=== PATIENT | male | born 1970 | race Caucasian/White ===

== ENCOUNTER 2017-11-06 19:25 | Inpatient (IN) | payer OTHER ==
[2017-11-06] MEDS ORDERED: NS 1,000 ML IV ONE (19:47)
--- NOTE | 2017-11-06 20:17 | EDPHY ---
H & P Smoking Status: Never smoked Time Seen by Provider: 11/06/17 19:37 HPI/ROS: CHIEF COMPLAINT: Concern for cholecystitis HISTORY OF PRESENT ILLNESS: Patient is a 47-year-old male with a history of colorectal cancer here with concern for possible cholecystitis. He is under the care of Dr. aMnning who is his oncologist at [facility]. He underwent a PET scan recently that showed metastases to the liver and additionally showed portal vein thrombosis but additionally showed multiple gallstones. The patient went to [facility] yesterday and had an ultrasound done which showed multiple gallstones with thickening of the gallbladder wall. Ultrasound report is not available at this time. He states that 1 week ago he had a fever and was prescribed amoxicillin by his oncologist in the fever has resolved. His some garcia was that the fever is due to infection of a chronic fluid collection he has secondary to his colectomy. He does report mild right upper quadrant pain over the last week. Denies any vomiting, diarrhea, chest pain, shortness of breath. His last chemo treatment was in June. REVIEW OF SYSTEMS: Constitutional: No fever, no chills. Eyes: No discharge. ENT: No sore throat. Cardiovascular: No chest pain, no palpitations. Respiratory: No cough, no shortness of breath. Gastrointestinal: + abdominal pain, no vomiting. Genitourinary: No hematuria. Musculoskeletal: No back pain. Skin: No rashes. Neurological: No headache. (Connor Bailey) Physical Exam: General Appearance: Alert and no distress. Eyes: Pupils equal and round no injection. Respiratory: Chest is nontender, lungs are clear to auscultation. Cardiac: regular rate and rhythm. Gastrointestinal: Minimally tender right upper quadrant without guarding or rebound or rigidity. History wrist patient does have a colostomy bag present and there is no induration or tenderness surrounding the borders. Musculoskeletal: Neck is supple and nontender. Extremities have full range of motion and are nontender. Skin: No rashes or lesions. (Connor Bailey) Constitutional: Initial Vital Signs Temperature (C) 36.8 C 11/06/17 19:30 Heart Rate 102 H 11/06/17 19:30 Respiratory Rate 18 11/06/17 19:30 Blood Pressure 148/86 H 11/06/17 19:30 O2 Sat (%) 94 11/06/17 19:30 O2 Delivery Mode Room Air Allergies/Adverse Reactions: hydrocodone Allergy (Verified 11/07/17 09:16) Itching Home Medications: Medication Instructions Recorded Insulin Glargine [Lantus 100 20 units SC HS 11/07/17 UNITS/ML (*)] Insulin Lispro [Humalog Kwikpen 10 unit SQ TID 11/07/17 U-100] LORazepam [Ativan (*)] 0.5 mg PO HS PRN 11/07/17 Medical Decision Making ED Course/Re-evaluation: 39-year-old male here with concern for cholecystitis. Ultrasound reveals thickened gallbladder wall without other evidence of cholecystitis. At lab work shows no leukocytosis and he is afebrile. Exam reveals minimally tender right upper quadrant. I discussed case with on-call general surgery Dr. Yu who recommended MRCP for further evaluation. MRCP revealed once again possible cholecystitis but with intrahepatic biliary ductal dilatation without clear evidence of mass or stone. Common bile duct was normal making cholangitis less likely. Patient will be admitted for further evaluation and and consultation with gastroenterology for possible ERCP tomorrow morning. Patient is agreeable with this plan and comfortable at time of admission. He remained hemodynamically stable and was afebrile during his stay in the ER (Connor Bailey) I did not see this patient while he was in the emergency department. However his care was discussed with the PA while the patient was in the department. I agree with treatment plan and management (Mike Capellan) Differential Diagnosis: Cholangitis, pancreatitis, choledocholithiasis, cholecystitis (Connor Bailey ) - Data Points Laboratory Results: Laboratory Results 11/06/17 20:20 11/06/17 20:20 Medications Given: Discontinued Medications Sodium Chloride (Ns) 1,000 mls @ 0 mls/hr IV EDNOW ONE; Wide Open PRN Reason: Protocol Stop: 11/06/17 19:48 Last Admin: 11/06/17 20:21 Dose: 1,000 mls Lactated Ringer's (Lr) 1,000 mls @ 0 mls/hr IV ONCE ONE PRN Reason: As Directed Stop: 11/07/17 15:07 Last Admin: 11/07/17 15:13 Dose: 1,000 mls Levofloxacin/Dextrose (Levaquin 500 Mg (Premix)) 100 mls @ 100 mls/hr IV ONCE ONE Stop: 11/07/17 16:44 Last Admin: 11/07/17 18:22 Dose: Not Given Sodium Chloride (Ns) 1,000 mls @ 75 mls/hr IV CONT MEHNAZ Stop: 11/08/17 08:04 Last Admin: 11/07/17 19:56 Dose: 1,000 mls Indomethacin (Indocin Rectal) 100 mg IL ONCE ONE Stop: 11/07/17 15:46 Last Admin: 11/07/17 18:22 Dose: Not Given Insulin Glargine (Lantus Syringe) 20 units SC HS MEHNAZ Stop: 05/06/18 20:59 Last Admin: 11/07/17 21:06 Dose: Not Given Insulin Human Lispro (Humalog Lispro) 0 unit SC TIDMEAL MEHNAZ PRN Reason: Protocol Stop: 05/06/18 07:59 Last Admin: 11/08/17 12:36 Dose: 4 units Insulin Human Lispro (Humalog Lispro) 10 unit SC ONCE ONE Stop: 11/07/17 01:35 Last Admin: 11/07/17 01:45 Dose: 10 units Departure - Departure Disposition: [facility] Acute Condition: Fair
[2017-11-06 20:38] LABS: PLATELET COUNT 153 10^3/uL (150-400)
[2017-11-06 20:46] LABS: INR 1.06 (0.83-1.16)
[2017-11-06] MEDS ORDERED: GADOBUTROL 10 ML VIAL IVP ONE (21:48)
[2017-11-07] MEDS ORDERED: ACETAMINOPHEN 325 MG TAB PO PRN (00:13)
[2017-11-07] MEDS ORDERED: ONDANSETRON 4 MG/2 ML VIAL IVP PRN ×2 (00:13→16:03)
[2017-11-07] MEDS ORDERED: ONDANSETRON DISINTEGRATING 4 MG TAB PO PRN (00:13)
[2017-11-07] MEDS ORDERED: D50W 25 GM/50 ML VIAL IVP PRN (01:05)
--- NOTE | 2017-11-07 01:17 | PDGENHP ---
History and Physical - Chief Complaint RUQ Pain - History of Present Illness 47 yo M w/ hx of rectal CA presents with RUQ pain. Patient first noticed a fever last Friday. He went to see his doctor who prescribed Augmentin. 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 His fevers improved after starting Augmentin. Over the last few days, however, he has developed progressive RUQ/RLQ abdominal pain. Outpatient labs showed elevated bilirubin so he was sent for evaluation at [facility]. Abdominal U/S there revealed possible cholecystitis and dilated bile ducts so he was sent to [facility] for evaluation. While here he has been afebrile, hemodynamically stable, and well appearing. His RUQ pain is improved after pain medicine. Dr. Yu of general surgery was consulted who requested MRCP. This revealed intrahepatic biliary ductal dilation without a clear source of obstruction. He is being admitted for further work-up and likely ERCP. History Information - Allergies/Home Medication List Allergies/Adverse Reactions: No Known Allergies Allergy (Unverified 11/06/17 19:28) Home Medications: AMOXICILLIN 11/06/17 [Last Taken Unknown] LORAZEPAM 11/06/17 [Last Taken Unknown] Lantus 11/06/17 [Last Taken Unknown] I have personally reviewed and updated: family history, medical history - Past Medical History cancer (Rectal CA w/ liver mets) - Surgical History Additional surgical history: Rectal resection with pouch formation and ostomy - Family History Positive for: cancer - Social History Smoking Status: Never smoked Review of Systems Review of Systems: ROS: 10pt was reviewed & negative except for what was stated in HPI & below Physical Exam Physical Exam: Temp Pulse Resp BP Pulse Ox 36.6 C 95 16 141/73 H 96 11/07/17 00:40 11/07/17 00:40 11/07/17 00:40 11/07/17 00:40 11/07/17 00:40 Constitutional: no apparent distress, appears nourished Eyes: PERRL, EOMI Ears, Nose, Mouth, Throat: moist mucous membranes, no oral mucosal ulcers Cardiovascular: regular rate and rhythym, no murmur, rub, or gallop Respiratory: no respiratory distress, clear to auscultation Gastrointestinal: normoactive bowel sounds, tenderness (RUQ/RLQ), verma's sign (Equivocal), other (Ostomy LLQ noted, nordmal appearing), No guarding, No rebound Skin: warm, normal color Musculoskeletal: full muscle strength, no muscle tenderness Neurologic: AAOx3, CN II-XII Intact Psychiatric: interacting appropriately, not anxious Lab Data & Imaging Review 11/06/17 20:20 11/06/17 20:20 WBC 3.85 10^3/uL (3.80-9.50) 11/06/17 20:20 RBC 3.28 10^6/uL (4.40-6.38) L 11/06/17 20:20 Hgb 9.2 g/dL (13.7-17.5) L 11/06/17 20:20 Hct 28.4 % (40.0-51.0) L 11/06/17 20:20 MCV 86.6 fL (81.5-99.8) 11/06/17 20:20 MCH 28.0 pg (27.9-34.1) 11/06/17 20:20 MCHC 32.4 g/dL (32.4-36.7) 11/06/17 20:20 RDW 18.9 % (11.5-15.2) H 11/06/17 20:20 Plt Count 153 10^3/uL (150-400) 11/06/17 20:20 MPV 9.2 fL (8.7-11.7) 11/06/17 20:20 Neut % (Auto) 91.4 % (39.3-74.2) H 11/06/17 20:20 Lymph % (Auto) 6.2 % (15.0-45.0) L 11/06/17 20:20 [place] % (Auto) 1.6 % (4.5-13.0) L 11/06/17 20:20 Eos % (Auto) 0.0 % (0.6-7.6) L 11/06/17 20:20 Baso % (Auto) 0.3 % (0.3-1.7) 11/06/17 20:20 Nucleat RBC Rel Count 0.0 % (0.0-0.2) 11/06/17 20:20 Absolute Neuts (auto) 3.52 10^3/uL (1.70-6.50) 11/06/17 20:20 Absolute Lymphs (auto) 0.24 10^3/uL (1.00-3.00) L 11/06/17 20:20 Absolute Monos (auto) 0.06 10^3/uL (0.30-0.80) L 11/06/17 20:20 Absolute Eos (auto) 0.00 10^3/uL (0.03-0.40) L 11/06/17 20:20 Absolute Basos (auto) 0.01 10^3/uL (0.02-0.10) L 11/06/17 20:20 Absolute Nucleated RBC 0.00 10^3/uL (0-0.01) 11/06/17 20:20 Immature Gran % 0.5 % (0.0-1.1) 11/06/17 20:20 Immature Gran # 0.02 10^3/uL (0.00-0.10) 11/06/17 20:20 RBC/WBC/PLT Morphology TNP 11/06/17 20:20 Platelet Estimate TNP 11/06/17 20:20 PT 14.0 SEC (12.0-15.0) 11/06/17 20:20 INR 1.06 (0.83-1.16) 11/06/17 20:20 APTT 28.4 SEC (23.0-38.0) 11/06/17 20:20 Sodium 139 mEq/L (135-145) 11/06/17 20:20 Potassium 4.3 mEq/L (3.3-5.0) 11/06/17 20:20 Chloride 104 mEq/L (97-110) 11/06/17 20:20 Carbon Dioxide 18 mEq/l (22-31) L 11/06/17 20:20 Anion Gap 17 mEq/L (8-16) H 11/06/17 20:20 BUN 16 mg/dL (7-23) 11/06/17 20:20 Creatinine 0.8 mg/dL (0.7-1.3) 11/06/17 20:20 Estimated GFR > 60 11/06/17 20:20 Glucose 372 mg/dL (70-100) H 11/06/17 20:20 Calcium 9.1 mg/dL (8.5-10.4) 11/06/17 20:20 Total Bilirubin 7.1 mg/dL (0.1-1.4) H 11/06/17 20:20 Conjugated Bilirubin 5.9 mg/dL (0.0-0.5) H 11/06/17 20:20 Unconjugated Bilirubin 1.2 mg/dL (0.0-1.1) H 11/06/17 20:20 AST 164 IU/L (17-59) H 11/06/17 20:20 ALT 195 IU/L (21-72) H 11/06/17 20:20 Alkaline Phosphatase 981 IU/L (38-126) H 11/06/17 20:20 Total Protein 8.0 g/dL (6.3-8.2) 11/06/17 20:20 Albumin 3.8 g/dL (3.5-5.0) 11/06/17 20:20 Lipase 186 IU/L (23-300) 11/06/17 20:20 Imaging Review: Imaging Impressions Abdomen Ultrasound 11/06/17 19:52 Impression: 1. Poorly distended gallbladder, with apparent cholelithiasis and gallbladder wall thickening, suspicious for cholecystitis. 2. Heterogeneous liver, with no dominant hepatic mass. 3. Mild intrahepatic biliary dilatation. 4. Additional findings, as above. Findings discussed with Connor Bailey PA-C, on November 06, 2017 at 2055. Abdomen MRI 11/06/17 21:31 Impression: 1. Central hepatic biliary obstruction with no appreciable etiology, which could be related to chemotherapy induced cholangitis, occult metastasis from colon cancer, or less likely cholangiocarcinoma. 2. Decompressed gallbladder with apparent gallbladder wall thickening without definite pericholecystic fluid, indeterminant for cholecystitis. 3. 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 4. Additional findings as above. If previous outside imaging can be made available, I will be happy to compare it. Findings discussed with Connor Bailey 11/06/2017 at 23:29. Assessment & Plan Assessment: 47 yo M w/ hx of rectal CA p/w RUQ pain and elevated bilirubin found to have biliary obstruction of unclear etiology. Plan: 1. Biliary obstruction - Central hepatic biliary obstruction with no appreciable etiology seen on MRI. Per radiology, this could be related to chemotherapy induced cholangitis, occult metastasis from colon cancer, or less likely cholangiocarcinoma. Review of previous records shows total bilirubin of 5 on 11/04, increased to 7.1 today (direct predominant): alk phos 981. Ascending cholangitis is a consideration but patient is currently well appearing, afebrile , and hemodynamically stable so this appears less likely. - Admit for further work-up - Will consult GI in the morning for likely ERCP, maintain NPO - Will observe off of antibiotics for now, blood cultures obtained - General surgery consulted, appreciate assistance - Discussed case with ED physician, reviewed previous records available in [facility] - Monitor CMP 2. Hx of rectal CA - Diagnosed in 2014 and treated surgically as well as with chemo and XRT. He had hepatic recurrence in 2017; his last PET scan available for review shows regression of hepatic lesions after further chemotherapy. He is currently off of treatment, but states further suppressive chemotherapy is planned in the future. - Ostomy in place 3. IDDM - Manages BG at home with insulin glargine 20 u qHS + insulin lispro 10 u TID. - Will proceed with insulin glargine 20 u qHS + standard protocol lispro SSI - ACHS BG checks + D50 IV PRN for hypoglycemia ordered 4. Hx of portal vein thrombosis - Previously on Xarelto, stopped due to bleeding complications related to chronic pelvic abscess. 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 6. Gallbladder wall thickening - Decompressed gallbladder with apparent gallbladder wall thickening without definite pericholecystic fluid, indeterminant for cholecystitis seen on MRI. - General surgery following, appreciate assistance 7. Normocytic anemia - Suspect anemia of chronic inflammation with possible contribution from oral 5-FU (last dose in August). Value (9.2) on admission improved from last found in [facility]. - Monitor CBC Diet - NPO Code - Full Ppx - SCDs Dispo - Admit under observation status
[2017-11-07] MEDS ORDERED: INSULIN LISPRO 100 UNIT/ML SC ONE (01:34)
[2017-11-07 04:48] LABS: PLATELET COUNT 154 10^3/uL (150-400)
[2017-11-07] MEDS: INSULIN LISPRO 100 UNIT/ML SC SCH ×3 (08:09→18:35)
--- NOTE | 2017-11-07 10:25 | GCON ---
[f rep st] CONSULTATION MEDICAL ONCOLOGY FOLLOWUP DATE OF CONSULTATION: 11/07/2017 REFERRING PHYSICIAN: Brock Marley MD REASON FOR CONSULTATION: Ongoing management of metastatic rectal carcinoma and biliary obstruction. RECOMMENDATIONS: 1. Agree with ERCP with Dr. Lindsay as you are planning this afternoon. 2. Monitor liver functions. 3. If this obstruction appears to be related to worsening metastatic rectal cancer as is suspected, the patient will need to go back on therapy, possibly with a different regimen. He previously was on FOLFOX and completed 12 cycles of therapy on the June. He had been in complete charo ssion at that time. He was started on maintenance capecitabine, which was stopped on the September secondary to a rising CEA and side effects. ASSESSMENT: This 47-year-old white male is now admitted with abnormal liver functions and a rising b ilirubin. His CEA was also found to be going up and most recently was 17. Because of the rising ning er functions and bilirubin, he underwent evaluation and was found to have dilated biliary tree. The question came up as to whether this is related to his gallbladder or possibly a stone that had passed or related to his cancer. That is yet to be fully determined, but the suspicion based on his rising CEA is that this is related to recurrent metastatic disease. The patient will get an ERCP with Dr. Lindsay this afternoon. Dr. Lindsay at that time will determine whet her it is appropriate to do biopsies, place a stent, etc. After discharge from the hospital, the patient will follow up with Dr. Mike Manning for discussion of reinstitution or change in his chemotherapy. HISTORY OF PRESENT ILLNESS: Please see Assessment. PAST MEDICAL HISTORY: Remarkable for his rectal cancer, which was diagnosed on the 21 of December 201 5. Stage at diagnosis was IIA. His tumor was T3 N0 M0. This is an adenocarcinoma. He is BRAF wild type. He is microsatellite stable. He is mismatch repair proficient. The patient was initially tr eated with combined modality therapy with capecitabine and radiation in December of 2014, completing in February of 2015. He had a rectosigmoid colectomy in March of 2015, which required reoperation be cause of an anastomotic leak in March of 2015. He had a diverting colostomy in April of 2015 f or a colonic leak and pelvic and retroperitoneal abscess. The patient was placed on treatment for hi s metastatic disease to his liver in January of 2017. He completed 12 cycles of FOLFOX. His past medical history is otherwise unremarkable. PAST SURGICAL HISTORY: In addition to the above-mentioned surgery, the patient has had a right knee arthroscopy and also had surgery for a jaw fracture in 1988. SOCIAL HISTORY: The patient is . 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 He does not smoke or drink. FAMILY HISTORY: Remarkable for a maternal grandfather who had bladder cancer at age 82. REVIEW OF SYSTEMS: At this time is remarkable for jaundice that was noticed by his . He has had no cough, no fevers. Some minor right lower quadrant abdominal pain. He has had no swelling or leo n in arm or leg. He reports no hemoptysis. His 10-system review is otherwise unremarkable. PHYSICAL EXAMINATION: GENERAL: Alert white male, talking on the phone when I came in the room. NAHID NT: Exam is remarkable for scleral icterus bilaterally. NECK: Supple, without adenopathy. LUNGS: Clear to auscultation. CARDIAC: Exam reveals regular rate and rhythm. ABDOMEN: Exam shows normal bowel sounds. His abdomen is soft. He has minor right lower quadrant tenderness but without reboun d tenderness. He has a functioning colostomy in the left lower quadrant. EXTREMITIES: Lower extrem ities show no edema. LABORATORY DATA: The patient's CBC shows a white count of 5.42 with a hemoglobin of 9.0 and a platel et count of 154,000. His INR is normal at 1.06. His glucose was elevated at 293. His total bilirub in was 7.1 on admission and down to 5.9 today. His alkaline phosphatase is elevated at 895, and his AST is elevated at 130 with an a ALT of 173. Albumin is normal at 3.5. Thank you very much for allowing us to participate in this pleasant gentleman's ongoing oncologic car e. We will look forward to assisting with his management during this hospitalization and beyond. /[id number]/MODL
--- NOTE | 2017-11-07 11:04 | ASMTCMCOM ---
CM Note CM Note Notes: CM reviewed chart for D/C planning. Pt is a 47 y/o male with a h/o rectal cancer. He has had a rectal resection with pouch formation and ostomy. He currently has a biliary obstruction of unclear etiology. Prior to hospitalization he lived independently with his , Mady # [phone]. CM will follow. D/C Plan TBD Date Signed: 11/07/2017 11:04 AM Electronically Signed By:Nathalia Camacho
[2017-11-07] MEDS ORDERED: IOTHALAMATE MEG (CONRAY) 50 ML VIAL IV ONE (14:51)
[2017-11-07] MEDS ORDERED: GLUCAGON HCL 1 MG VIAL ONE (14:51)
[2017-11-07] MEDS ORDERED: LR 1,000 ML IV ONE (15:06)
--- NOTE | 2017-11-07 15:20 | PDANEPAE ---
ANE History of Present Illness 47 year old male w/ history of metastatic rectal cancer (mets to liver) now signs of biliary obstruction for ERCP. ANE Past Medical History - Cardiovascular History Hx Hypertension: No Hx Arrhythmias: No Hx Chest Pain: No Hx Coronary Artery / Peripheral Vascular Disease: No Hx CHF / Valvular Disease: No Hx Palpitations: No - Pulmonary History Hx COPD: No Hx Asthma/Reactive Airway Disease: No Hx Recent Upper Respiratory Infection: No Hx Oxygen in Use at Home: No Hx Sleep Apnea: No Sleep Apnea Screening Result - Last Documented: Negative - Endocrine History Hx Diabetes: Yes Hypothyroid: No Hyperthyroid: No Obesity: no - Renal History Hx Renal Disorders: No - Liver History Hx Hepatic Disorders: Yes Hepatic History Comment: Mets to liver - Neurological & Psychiatric Hx Hx Neurological and Psychiatric Disorders: No - Cancer History Hx Cancer: Yes Cancer History Comment: Metastatic rectal cancer (mets to liver) - Congenital Disorder History Hx Congenital Disorders: No - GI History Gastrointestinal History Comment: rectal cancer with colostomy - Chronic Pain History Chronic Pain: No ANE Review of Systems Review of systems is: negative Review of Systems: - Exercise capacity Exercise capacity: >=4 METS ANE Patient History - Allergies Allergies/Adverse Reactions: hydrocodone Allergy (Verified 11/07/17 09:16) Itching - Home Medications Home medications: home medication list seen and reviewed Home Medications: Amoxicillin/Clavulanate Pot [Augmentin 875 MG TAB (*)] 875 mg PO BID 11/07/17 [ Last Taken 11/06/17 am dose only] Insulin Glargine [Lantus 100 UNITS/ML (*)] 20 units SC HS 11/07/17 [Last Taken 11/05/17] Insulin Lispro [Humalog] 10 unit SQ TID 11/07/17 [Last Taken 11/06/17 16:00] LORazepam [Ativan (*)] 0.5 mg PO HS PRN 11/07/17 [Last Taken 11/05/17] - NPO status NPO Status: no food or drink >8 hours NPO Since - Liquids (Date): 11/07/17 NPO Since - Liquids (Time): 00:00 NPO Since - Solids (Date): 11/07/17 NPO Since - Solids (Time): 00:00 - Anes Hx Anes Hx: no prior problems - Smoking Hx Smoking Status: Never smoked Marijuana use: No - Alcohol Use Alcohol Use: Rarely - Family Anes Hx Family Anes Hx: neg - N/A ANE Labs/Vital Signs - Labs Result Diagrams: 11/07/17 04:32 11/07/17 04:32 - Vital Signs Vital Signs: reviewed preoperatively; see RN documention for details Blood Pressure: 124/80 Heart Rate: 90 Respiratory Rate: 16 O2 Sat (%): 97 Height: 175.26 cm Weight: 83.007 kg ANE Physical Exam - Airway Neck exam: FROM Mallampati Score: Class 2 Mouth exam: normal dental/mouth exam - Pulmonary Pulmonary: no respiratory distress - Cardiovascular Cardiovascular: regular rate and rhythym - ASA Status ASA Status: III ANE Anesthesia Plan Anesthesia Plan: general endotracheal anesthesia Total IV Anesthesia: No
[2017-11-07] MEDS ORDERED: PROPOFOL 200 MG/20 ML VIAL ONE (15:35)
[2017-11-07] MEDS ORDERED: ROCURONIUM 50 MG/5 ML VIAL ONE (15:35)
[2017-11-07] MEDS ORDERED: fentaNYL 100 MCG/2 ML INJ ONE (15:35)
[2017-11-07] MEDS ORDERED: LIDOCAINE 2% 5 ML SDV ONE (15:35)
[2017-11-07] MEDS ORDERED: levOFLOXACIN 500 MG/DEXTROSE 100 ML IV ONE (15:45)
[2017-11-07] MEDS ORDERED: INDOMETHACIN 50 MG SUPP PR ONE (15:45)
[2017-11-07] MEDS ORDERED: HYDROmorphONE/DILAUDID 1 MG/ML INJ IVP PRN (16:03)
[2017-11-07] MEDS ORDERED: PHENYLEPHRINE HCL 100 MCG/ML SYR IVP PRN (16:03)
[2017-11-07] MEDS ORDERED: LR 500 ML IV PRN (16:03)
[2017-11-07] MEDS ORDERED: fentaNYL 100 MCG/2 ML INJ IVP PRN (16:03)
[2017-11-07] MEDS ORDERED: PROMETHAZINE HCL 25 MG/ML INJ IVP PRN (16:03)
[2017-11-07] MEDS ORDERED: NALOXONE HCL 0.4 MG/ML INJ IVP PRN (16:03)
[2017-11-07] MEDS ORDERED: levOFLOXACIN 500 MG/DEXTROSE/100 ML BAG IV ONE (16:14)
[2017-11-07] MEDS ORDERED: ONDANSETRON 4 MG/2 ML VIAL ONE (16:28)
[2017-11-07] MEDS ORDERED: SUGAMMADEX SODIUM 200 MG/2 ML VIAL IVP ONE (16:28)
[2017-11-07] MEDS ORDERED: LORazepam 0.5 MG TAB PO PRN (16:56)
--- NOTE | 2017-11-07 17:08 | HOSPPROG ---
Hospitalist Progress Note Assessment/Plan: * Metastatic rectal cancer - known liver mets -if biliary obstruction due to liver met, will need chemo change * Biliary obstruction - unclear cause of obstruction -ERCP today * Chronic pelvic abscess as complication of anastomotic leak -rectal resection s/p colostomy * DM II -lantus * Portal vein thrombosis -Xarelto dc'd due to bleeding Subjective: seen post ERCP in PACU - sedated Objective: Vital Signs Temp Pulse Resp BP Pulse Ox 36.6 C 90 16 124/80 H 97 11/07/17 14:43 11/07/17 15:31 11/07/17 15:31 11/07/17 15:31 11/07/17 15:31 Laboratory Results 11/07/17 04:32 11/07/17 04:32 11/06/17 11/07/17 11/08/17 05:59 05:59 05:59 Intake Total 1100 Balance 1100 PT 14.0 SEC (12.0-15.0) 11/06/17 20:20 INR 1.06 (0.83-1.16) 11/06/17 20:20 MRCP - obstruction mid liver, unclear cause d/w Dr. Bennett regarding oncology consultation - Physical Exam Constitutional: no apparent distress, appears nourished, not in pain Cardiovascular: regular rate and rhythym, no murmur, rub, or gallop Respiratory: no respiratory distress, no rales or rhonchi, clear to auscultation Gastrointestinal: normoactive bowel sounds, soft, non-tender abdomen, no palpable masses Skin: no rashes or abrasions, no fluctuance, no induration Neurologic: other (sedated post procedure) ICD10 Worksheet Patient Problems: Problems Problem Status Onset Rectal cancer metastasized to liver Acute - ICD10 Problem Qualifiers (1) Rectal cancer metastasized to liver
[2017-11-07] MEDS ORDERED: NS 1,000 ML IV SCH (18:45)
[2017-11-07] MEDS ORDERED: INSULIN GLARGINE 100 UNITS/ML UNIT SC SCH ×2 (21:00)
--- NOTE | 2017-11-08 02:51 | GCON ---
[f rep st] CONSULTATION DATE OF CONSULTATION: 11/07/2017 CONSULTING PHYSICIAN: Dr. Brock Marley. REASON FOR CONSULTATION: Increased liver function tests/biliary obstruction. CHIEF COMPLAINT: Right upper quadrant abdominal pain. HISTORY OF PRESENT ILLNESS: This patient is a 47-year-old male with a history of metastatic rectal cancer initially diagnosed in 2014 who presents to [facility] with complaints of right upper quadrant abdominal pain, as well as increasing liver function tests. Patient was doing well until approximately 1 week prior to admission when he started to develop fevers. He called his oncologist and was started on Augmentin with relief of his fevers. Unfortunately, over the last several days, the patient has been complaining of a right upper quadrant, as well as right lower quadrant abdominal pain. This pain is exacerbated by certain positions with no significant alleviating factors. Due to his complaints, blood work was done which did reveal significant elevated liver function tests. He also thought that his skin may be turning yellow. On evaluation, he was noted to have significant elevated liver function tests with a bilirubin of 5.9 and alkaline phosphatase of 895. An MRCP was ordered which did reveal a hilar obstruction with upstream right and left ductal dilation. I am being asked by Dr. Marley to evaluate the patient in consultation regarding his increasing liver function tests/biliary obstruction. PAST MEDICAL HISTORY: Metastatic colon cancer initially diagnosed in 2004, diabetes mellitus. PAST SURGICAL HISTORY: Right knee surgery, jaw fracture. MEDICATIONS: Lantus, lorazepam, amoxicillin. ALLERGIES: NKDA. FAMILY HISTORY: Bladder cancer. SOCIAL HISTORY: . Denies any alcohol or tobacco use. REVIEW OF SYSTEMS: A 14-point comprehensive review of systems was asked. Pertinent positives and negatives per HPI. PHYSICAL EXAM: VITALS: Blood pressure 124/80, temperature 36.6, respirations 16. GENERAL: Awake, alert, oriented. HEENT: Anicteric sclerae. Moist mucosa. NECK: No JVD. CARDIOVASCULAR: Regular rate and rhythm. Positive S1 , S2. No murmurs or gallops appreciated. LUNGS: Clear to auscultation bilaterally without wheezes, rales, or rhonchi. ABDOMEN: Soft, nontender, nondistended. Positive bowel sounds. No guarding. No rebound. EXTREMITIES: No clubbing, cyanosis, edema. NEUROLOGIC: 2 through 12 grossly intact. PSYCH : Normal affect. MUSCULOSKELETAL: No obvious joint effusions. BLOOD WORK: INR 1.06. Total bilirubin 5.9, AST 130, ALT 173, alkaline phosphatase 895. MRCP: Hilar tumor with upstream dilation of both the right and left biliary tree. ASSESSMENT AND PLAN: 1. Biliary obstruction - suspect secondary to metastatic rectal cancer. I did discuss the case with his primary oncology team. At this time, recommend to proceed with ERCP with possible stenting to alleviate the obstruction. The risks, benefits, and alternatives of the procedure were discussed in great detail with the patient. The risks of infection, bleeding, perforation, sedation, and pancreatitis were discussed. All questions answered. Informed consent was obtained. 2. History of metastatic colon cancer. Thank you very much for this consultation. /[id number]/MODL MTDD
[2017-11-08 04:55] LABS: PLATELET COUNT 148 10^3/uL (150-400)
--- NOTE | 2017-11-08 05:10 | GPN ---
[f rep st] PROCEDURE NOTE DATE OF PROCEDURE: 11/07/2017 PROCEDURE: Endoscopic retrograde cholangiopancreatogram with biliary sphincterotomy, extraction of debris, placement of temporary stent. INDICATIONS: The patient is a 47-year-old male with a history of metastatic colon cancer who presents with biliary obstruction. CONSENT: Risks, benefits, and alternatives of the procedure were discussed in great detail with the patient. The risk of infection, bleeding, perforation, sedation, and pancreatitis were discussed. All questions answered. Informed consent obtained. MEDICATIONS: General anesthesia. Please see Anesthesia record for details. Levaquin 500 mg IV x1. Rectal indomethacin 100 mg OK x1. ESTIMATED BLOOD LOSS: Insignificant. ENDOSCOPIC RETROGRADE CHOLANGIOPANCREATOGRAM EXAMINATION: The Olympus duodenoscope was introduced into the mouth and advanced to the second portion of the duodenum. The ampulla was brought into view and was normal in appearance. Using a SurDoc sphincterotome and a 0.035 inch wire, a wire was advanced into the common bile duct and intrahepatics after a few tries using the wire guided technique. A limited cholangiogram was performed to confirm position. A 1 cm biliary sphincterotomy was performed. An occlusion cholangiogram was performed with filling of the entire biliary tree including the gallbladder. There was adequate flow of bile with visualization of the whole biliary tree. I personally interpreted these images in real-time. The gallbladder was seen with multiple stones. The common bile duct was not dilated and measured approximately 3-4 mm. In the common hepatic area, there was poor opacification consistent with a malignant stricture. Upstream, there was dilation of both the right and left biliary trees. Multiple balloon sweeps were made with a 12mm balloon with extraction of debris. A wire was initially placed into the left biliary tree and then another wire was advanced into the right biliary tree. It was initially attempted to place two 7-Greek 9 cm stents into both sides. Unfortunately, this high-grade stricture, as well as small common bile duct would not allow passage of these stents due to its small diameter. A 10-Greek 9 cm stent was eventually placed above the common hepatic duct and stricture. Excellent flow of bile was noted. IMPRESSION: 1. Stricture in the common hepatic duct . 2. Extraction of debris. 3. Placement of a temporary stent above the obstruction. RECOMMENDATIONS: 1. N.p.o. 2. Antibiotics x5 days. 3. Consider repeat ERCP with placement of 2 stents on both sides of the biliary tree. This will require dilation in the common hepatic duct stricture. /[id number]/MODL MTDD
[2017-11-08 07:57] VITALS: BP 110/67
--- NOTE | 2017-11-08 08:08 | PDMN ---
Medical Necessity Medical necessity: MCG: M555 gallbladder or bile duct inflammation or stone A- 2 days: biliary obstruction, with abnormal liver functions and rising bilirubin. ERCP with stents , pt with known Met. rectal Ca., known liver mets. , further monitoring and tx needed anticipate > 2 midnights
[2017-11-08] MEDS: INSULIN LISPRO 100 UNIT/ML SC SCH ×2 (09:10→12:36)
--- NOTE | 2017-11-08 12:20 | SOAPPROG ---
SOAP Progress Note Assessment/Plan: E&M for rectal carcinoma * Biliary obstruction secondary to malignancy: He underwent an ERCP by Dr. Lindsay yesterday. He also had stents placed. His nausea is better and he has an appetite. If he is able to take p.o. and cleared by GI, there is no oncological contraindication for him to stay. * Metastatic colorectal cancer: It appears his disease may be progressing. Once he is recovered from the stent placement he needs to follow-up with Dr. Manning for discussion of reinstitution or change in his chemotherapy. Subjective: Patient currently in the shower. He ate a clear liquid breakfast without pain or nausea or vomiting. is with the patient. Objective: Vital Signs Temp Pulse Resp BP Pulse Ox 36.9 C 87 14 110/67 97 11/08/17 07:57 11/08/17 07:57 11/08/17 07:57 11/08/17 07:57 11/08/17 07:57 Laboratory Results 11/08/17 04:41 11/08/17 04:41 11/07/17 11/08/17 11/09/17 05:59 05:59 05:59 Intake Total 1100 1764 Output Total 5 Balance 1100 1759 PT 14.0 SEC (12.0-15.0) 11/06/17 20:20 INR 1.06 (0.83-1.16) 11/06/17 20:20 Laboratory Tests 11/06/17 11/07/17 11/08/17 20:20 04:32 04:41 Total Bilirubin 7.1 H 5.9 H 6.7 H Conjugated Bilirubin 5.9 H 4.7 H 5.5 H Unconjugated Bilirubin 1.2 H 1.2 H 1.2 H AST 164 H 130 H 153 H ALT 195 H 173 H 180 H Alkaline Phosphatase 981 H 895 H 773 H Physical Exam - Physical Exam General Appearance: no apparent distress ICD10 Worksheet Patient Problems: Problems Problem Status Onset Rectal cancer metastasized to liver Acute
--- NOTE | 2017-11-08 13:42 | POSTANESTH ---
Post Anesthetic Evaluation Cardiovascular Status: Normal, Stable, Similar to Pre-Op Cond Respiratory Status: Normal, Stable, Similar to Pre-op Cond. Level of Consciousness/Mental Status: Can Participate in Eval, Alert and Oriented Pain Control: Adequate, Prn Tx Ordered Nausea/Vomiting Control: Adequate, Prn Tx Ordered Complications Possibly Related to Anesthesia: None Noted
--- NOTE | 2017-11-08 14:30 | PDDCSUM ---
Discharge Summary Discharge Summary: Date of Admission: November 07, 2017 Date of Discharge: November 08, 2017 Discharge Diagnoses: Biliary obstruction, status post stent placement Metastatic rectal cancer Colostomy Insulin-dependent diabetes mellitus Chronic pelvic abscess Anemia History of portal vein thrombosis Admission Diagnoses: Biliary obstruction Rectal cancer Colostomy Insulin-dependent diabetes mellitus History of portal vein thrombosis Chronic pelvic abscess Gallbladder wall thickening Normocytic anemia Consultants: Oncology-Dr. Bennett GI-Dr. Lindsay [facility] Course: The patient is a 47-year-old male with metastatic rectal cancer who was admitted for biliary obstruction, possibly secondary to tumor compression of the common bile duct. Patient underwent ERCP with sphincterotomy and biliary stent placement. On ERCP, the bile duct was not dilated and appeared to have a stricture associated with malignancy. The next day the patient was feeling much better. He was tolerating a clear liquid diet for breakfast and a solid diet for lunch. He denied any abdominal pain, nausea or vomiting. He was discharged home with instructions to follow up with his oncologist Dr. Manning. Physical Exam: General: The patient is a male who is alert and in no acute distress. HEENT: normocephalic, extraocular movements intact, conjunctivae clear, no lesions on face. Nares and oral mucosa pink and moist. Neck: trachea midline, no visible masses, no external lesions. Resp: unlabored breathing. Abd: soft and nondistended. Mild tenderness midepigastrium. Musculoskeletal: Normal muscle tone and bulk. Neuro: cranial nerves II XII grossly intact. Intact gross motor and sensory function. Psych: appropriate mood/affect. Skin: no pallor. Condition: Stable Discharged to: Home Pertinent tests/labs/imaging/procedures: ERCP-structure in common hepatic duct. Extraction of debris, placement of temporary stent above extraction. MRI Abd: Impression: 1. Central hepatic biliary obstruction with no appreciable etiology, which could be related to chemotherapy induced cholangitis, occult metastasis from colon cancer, or less likely cholangiocarcinoma. 2. Decompressed gallbladder with apparent gallbladder wall thickening without definite pericholecystic fluid, indeterminant for cholecystitis. 3. 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 Medications: Please see med rec form. Augmentin twice daily for 5 days. Special instructions: Return to hospital if symptoms return or worsen. Follow up: Follow up with oncologist in 3-5 days. Follow up with GI as needed (patient may need additional stent placement in the future). Follow up with PCP as needed. Less than 30 minutes of total time was spent on counseling and coordination of care for this patient's discharge.
--- NOTE | 2017-11-09 09:44 | ASMTLACE ---
LACE Length of stay for Answers: 1 day current admission Acuity / Level of Answers: Yes Care: Did the patient have an inpatient admission? Comorbidities - select Answers: Any tumor (including all that apply lymphoma or leukemia) # of Emergency department Answers: 1-2 visits in the last 6 months Score: 7 Date Signed: 11/09/2017 09:43 AM Electronically Signed By:Nellie Laws RN
--- NOTE | 2017-11-09 09:47 | ASDISCHSUM ---
Discharge Information Plan Status:Home with No Needs Medically Cleared to Leave:11/08/2017 Discharge Date:11/08/2017 02:44 PM CM D/C Disposition:Home, Routine, Self-Care ADT D/C Disposition:Home, Routine, Self-Care Projected Discharge Date:11/08/2017 02:44 PM Transportation at D/C:Family Discharge Delay Reason: Follow-Up Date:11/08/2017 02:44 PM Discharge Slot:2 - 12:01 pm - 18:00 pm Final Diagnosis:Central hepatic biliary obstruction Placement Information Patient Contact Information Contact Name:ROSA Relationship: Address:[address] Work Phone: [facility]:[place] Alternate Phone: [facility]/Zip Code:[place] [address] Email: Financial Information Financial Class:HMO and PPO Plans Primary Plan Desc:[facility] Primary Plan Number:[id number] Secondary Plan Desc: Secondary Plan Number: Assessment Information LACE LACE Length of stay for Answers: 1 day current admission Acuity / Level of Answers: Yes Care: Did the patient have an inpatient admission? Comorbidities - select Answers: Any tumor (including all that apply lymphoma or leukemia) # of Emergency department Answers: 1-2 visits in the last 6 months Score: 7 Date Signed: 11/09/2017 09:43 AM Electronically Signed By:Nellie Laws RN [facility] CM Progress Note CM Note CM Note Notes: LARS reviewed chart for D/C planning. Pt is a 47 y/o male with a h/o rectal cancer. He has had a rectal resection with pouch formation and ostomy. He currently has a biliary obstruction of unclear etiology. Prior to hospitalization he lived independently with his , Mady Briceno [phone]. CM will follow. D/C Plan TBD Date Signed: 11/07/2017 11:04 AM Electronically Signed By:Nathalia Camacho Case Management Discharge Plan Note Case Management Discharge Discharge Order Complete? Answers: Yes Patient to Obtain Answers: Independently Medications Transportation Arranged Answers: Family/Friends EMTALA Complete Answers: No Notes: N/A Case Management Transport Answers: No Notes: N/A Form Complete Faxed Final Orders Answers: No Notes: N/A Agency/Facility Transfer Answers: No Notes: N/A Report Printed & Faxed to Receiving Agency Family Notified Answers: No Notes: Pt notified Discharge Comments Notes: Late entry - Reviewed chart regarding discharge plan of care, pt's progress. Per MD notes, pt discharged home independently on Friday11/08/17 with no identified needs. No IM signed, not applicable. Pt to follow up as directed. CM available for any further issues or concerns. Discharge Plan: Home independently Date Signed: 11/09/2017 09:46 AM Electronically Signed By:Nellie Laws RN Intervention Information
== END 2017-11-08 14:44 | disposition home or self-care (01) | DRG 444 ==
LOC: OBSVTOIN 11-07 00:13 → F1N 11-07 00:58
PROVIDERS: ADMIT Student in an Organized Health Care Education/Training Program; ATTEND Internal Medicine
DX: K83.1 Obstruction of bile duct (principal); C78.7 Secondary malignant neoplasm of liver and intrahepatic bile duct; C20 Malignant neoplasm of rectum; K65.1 Peritoneal abscess; T81.4XXA Infection following a procedure, initial encounter; D64.9 Anemia, unspecified; K80.20 Calculus of gallbladder without cholecystitis without obstruction; E11.9 Type 2 diabetes mellitus without complications; R93.2 Abnormal findings on diagnostic imaging of liver and biliary tract; Z79.4 Long term (current) use of insulin; Z86.718 Personal history of other venous thrombosis and embolism; Z93.3 Colostomy status; Z79.01 Long term (current) use of anticoagulants; Z90.49 Acquired absence of other specified parts of digestive tract
CPT/HCPCS: A9585; C1769; C2625; J1610; J1815; J1956; J2405; J2704; J3010; Q9961